=== PATIENT | male | born 1990 | race Caucasian/White ===

== ENCOUNTER 2018-07-21 21:17 | Emergency (ER) | payer MEDICAID, OTHER ==
[~2018-07-21] VITALS: Ht 177.8 cm; Wt 81.6 kg
[2018-07-21 21:21] VITALS: BP_SYST 126
[2018-07-21 22:30] VITALS: BP_SYST 120
== END 2018-07-21 22:30 | disposition home or self-care (01) ==
LOC: SED 21:17
DX: S63.641A Sprain of metacarpophalangeal joint of right thumb, initial encounter (principal); R03.0 Elevated blood-pressure reading, without diagnosis of hypertension; X58.XXXA Exposure to other specified factors, initial encounter; Y93.64 Activity, baseball; Y92.89 Other specified places as the place of occurrence of the external cause; Y99.8 Other external cause status
CPT/HCPCS: 73140-TC; 99284